=== PATIENT | female | born 1950 | race Caucasian/White ===

== ENCOUNTER → 2024-10-13 10:13 | Outpatient (REF) | payer MEDICARE, OTHER, SELFPAY | LOC: WDC 10:13 | PROVIDERS: ATTENDING PHYSICIAN Internal Medicine | DX: Z12.31 Encounter for screening mammogram for malignant neoplasm of breast (principal) | CPT/HCPCS: 77063; 77067 ==

== ENCOUNTER 2024-11-19 10:31 | Emergency (ER) | payer MEDICARE, OTHER, SELFPAY ==
[2024-11-19 10:41] VITALS: BP 150/90
--- NOTE | 2024-11-19 12:03 | ED.GENMED ---
History of Present Illness
<Ana M Crowder PA-C - Last Filed: 11/20/24 10:54>
General
Chief Complaint: Skin Problem
Source: patient
Exam Limitations: none
Time Seen by Provider: 11/19/24 11:20
Nursing documentation reviewed up to this point in time: agreed with
History of Present Illness
History of Present Illness:
Patient is a 73-year-old female with history hypertension presenting to the emergency department for evaluation of right lower leg injury following a fall 1 week ago. Patient states that she was walking out to her car last , 7 days ago when
she lost consciousness and fell. Patient reports that prior to fall she felt mildly lightheaded. She does have a history of somewhat frequent falls due to 'labile hypertension 'per her primary care.
She was eventually able to get herself up. Patient reports noticing a large hematoma to her right proximal chan for she has been applying ice w/ some decrease in size. However�bruising on her leg has become worse over the past week and she noticed
a new bruising around her right ankle. Her chiropractor was concerned that she may have a blood clot and sent her to the emergency department for evaluation. Patient does note some mild tingling sensation in her right foot. Patient unsure if she
hit her head although denies any headache, vomiting, vision changes, confusion since fall. No blood thinners.
No pain in bilateral upper extremities. No pain in left lower extremity. No fevers or chills.
At this time�patient denies any dizziness/lightheadedness. No chest pain or shortness of breath. No heart palpitations.
Past History
<Ana M Crowder PA-C - Last Filed: 11/20/24 10:54>
Past History
ED Past Medical History: HTN, Hypercholesterolemia, Psychiatric (Anxiety) and Other (Sjogren's syndrome)
ED Past Surgical History: None
Social History
Tobacco: Non-smoker
Alcohol: None
Drug: None
Personal:
Living: alone
Employment: Employed
Review of Systems
<Ana M Crowder PA-C - Last Filed: 11/20/24 10:54>
Review of Systems
Allergies reviewed?: Yes
All Other Systems: ROS reviewed and negative except as documented in HPI and ROS
Phy Exam
<Ana M Crowder PA-C - Last Filed: 11/20/24 10:54>
Physical Exam
Physical Exam:
Vitals: Hypertensive, otherwise stable vital signs. Afebrile
General: Patient is well appearing, no acute distress. Nontoxic appearing
Skin: Warm and dry, no rashes or lesions
Head: Normocephalic, atraumatic
Eyes: Sclera nonicteric. EOMs intact. No nystagmus.
Throat: Protecting airway
Neck: Normal ROM, no cervical spine tenderness, no meningismus
Cardiac: Regular rate and rhythm, no murmurs.
Pulm: Normal respiratory effort, no wheezes, rales, rhonchi heard on exam.
Abdomen: Abdomen soft and nontender. No abdominal tenderness.
Back: No midline spinal tenderness.
Extremities: Hematoma to right proximal tibia, ecchymoses to right anterior lower leg from knee to ankle. Palpable distal pulses in RLE. Bilateral lower extremities with full range of motion without pain. No evidence of traumatic injury to left
lower extremity or bilateral upper extremities
Neuro: AAOx3. CN II-XII intact. No focal neurologic deficits.
Psychiatric: Normal affect.
Course
<Ana M Crowder PA-C - Last Filed: 11/20/24 10:54>
Orders/Labs/Results
Orders:
Orders
11/19/24 10:43
US Periph Venous LOWER Ext RT Urgent
Comment:
Reason For Exam: right calf swelling with pain
11/19/24 11:58
Electrocardiogram (*1) Urgent
Reason for Study: Vertigo / Dizzy
EKG- Treatment ONCE
Tib/Fib, Right 2 View [CR Leg Tibia/fibula Right 2 Vw] Urgent
Comment:
Reason For Exam: fall, bruising right lower leg
11/19/24 12:09
Complete Blood Count/With Diff Urgent
Comprehensive Metabolic Panel Urgent
11/19/24 13:06
Orthostatic VS- Treatment ONCE
Abnormal Lab Results
11/19/24
12:09
Creatinine 0.5 L mg/dL
(0.6-1.0)
Glucose 106 H mg/dl
(70-99)
11/19/24 12:09
11/19/24 12:09
Vital Signs
Initial and Last Documented VS:
Initial Vital Signs
Temp Pulse Resp BP Pulse Ox
98.0 F 100 16 150/90 98
11/19/24 10:41 11/19/24 10:41 11/19/24 10:41 11/19/24 10:41 11/19/24 10:41
Last Documented Vital Signs
Temp Pulse Resp BP Pulse Ox
98.0 F 78 16 140/68 99
11/19/24 10:41 11/19/24 13:59 11/19/24 13:59 11/19/24 13:59 11/19/24 13:59
<Dick Anguiano MD - Last Filed: 11/19/24 13:55>
Orders/Labs/Results
Orders:
Orders
11/19/24 10:43
US Periph Venous LOWER Ext RT Urgent
Comment:
Reason For Exam: right calf swelling with pain
11/19/24 11:58
Electrocardiogram (*1) Urgent
Reason for Study: Vertigo / Dizzy
EKG- Treatment ONCE
Tib/Fib, Right 2 View [CR Leg Tibia/fibula Right 2 Vw] Urgent
Comment:
Reason For Exam: fall, bruising right lower leg
11/19/24 12:09
Complete Blood Count/With Diff Urgent
Comprehensive Metabolic Panel Urgent
11/19/24 13:06
Orthostatic VS- Treatment ONCE
Abnormal Lab Results
11/19/24
12:09
Creatinine 0.5 L mg/dL
(0.6-1.0)
Glucose 106 H mg/dl
(70-99)
11/19/24 12:09
11/19/24 12:09
Vital Signs
Initial and Last Documented VS:
Initial Vital Signs
Temp Pulse Resp BP Pulse Ox
98.0 F 100 16 150/90 98
11/19/24 10:41 11/19/24 10:41 11/19/24 10:41 11/19/24 10:41 11/19/24 10:41
Last Documented Vital Signs
Temp Pulse Resp BP Pulse Ox
98.0 F 78 16 140/68 99
11/19/24 10:41 11/19/24 13:59 11/19/24 13:59 11/19/24 13:59 11/19/24 13:59
<Ana M Crowder PA-C - Last Filed: 11/20/24 10:54>
MDM/Problems Addressed
Differential Diagnosis Includes:
Not limited to: Hematoma, lower leg fracture, DVT, orthostatic hypotension, medication side effects, etc.
MDM/Problems Addressed:
73 year old presenting with hematoma to right lower leg after what seems to have been syncopal event one week ago. No fevers or chills. No chest pain or shortness of breath. Patient hypertensive, otherwise stable vital signs. Physical exam as above.
No evidence of head or neck trauma. Hematoma noted to right proximal tibia without overlying redness or warmth to suggest infectious process. RLE neurovascularly intact. No neurologic deficits. Patient ambulating through department. RLE US negative
for DVT. No evidence of fracture of RLE. Labs were obtained along with an EKG given hx of possible syncope. EKG without arrhythmia or acute ischemic changes.
Overall impression is hematoma on right lower extremity. Low suspicion for infection. Feel patient stable for discharge w/ PCP follow-up. Will advise cardiology f/u as well given hx of syncope. Return precautions discussed.
Chronic conditions affecting care:
Hypertension
Acute Exacerbation and/or Progression of Chronic Illness:
N/A
<Ana M Crowder PA-C - Last Filed: 11/20/24 10:54>
*Radiology
Radiology exam reviewed: preliminary read by ED provider (X-ray reviewed by me-no acute fracture)
*Pulse Oximetry
Patient hypoxic: no
*EKG
Interpreted by ED Provider?: Yes
EKG Intrepretation Date: 11/19/24
Interpretation: abnormal
Comparison EKG: no changes
Heart Rate: 71
Rate: normal
Rhythm: sinus
[place]: left axis deviation
Interval: normal QT interval
QRS Pattern: left vent hypertrophy
Ischemia: no ischemia
*Incising Machine Operator Interpretation
Rate: Incising Machine Operator- N/A
*Critical Care Note
Total Time (30-74mins, 75-104mins- exclusive of procedures): Not Applicable
ED Attending Note
<Ana M Crowder PA-C - Last Filed: 11/20/24 10:54>
-
Portions of this chart may have been created with voice recognition software.� Occasional wrong word or��sound alike� substitutions may have occurred due to the inherent limitations of voice recognition software.
<Dick nAguiano MD - Last Filed: 11/19/24 13:55>
ED Attending Note
Patient seen and examined by attending physician: Yes
ED Attending Note:
I have seen and evaluated the patient with a [id number] encounter. I have spoken to the advance practicer provider and involved in the medical history, the physical exam, medical decision making.
Evaluation and management service: agree unless noted differently below.
Results interpretation: agree unless noted differently below.
Focused HPI: 73-year-old female with history as documented presents for evaluation of right leg bruise. Patient reports that when she was going grocery shopping last week she had some lightheadedness and passed out. She landed on her knees and
sustained a hematoma to her right knee. She did not hit her head. She says that she has passed out many times before and was told by her primary doctor that she has 'labile hypertension' and that her blood pressure sometimes drops. She says that
she initially had a lump on her knee but over the past week she noticed that the entire leg became bruised and today she saw her chiropractor who recommended she come to the emergency room to be evaluated for a blood clot. She denies any other
serious injuries�denies any headache, neck pain, back pain, rib pain. She denies any chest pain or shortness of breath. She is not on blood thinners.
Physical exam: Awake alert no distress. Vital signs normal on my assessment. She has no cardiac rubs gallops or murmurs. Lungs clear to auscultation bilaterally. Head is atraumatic and she has no cervical spine tenderness. No tenderness of the
thoracic or lumbar spine. No abdominal tenderness. She has a hematoma proximal anterior medial right lower leg with yellow to purple bruising down the entire anterior chan and near the ankle; she has no significant edema, good strong distal pulses
of the right leg, no tenderness along the joint line of the knee and full range of motion of the knee and she is weightbearing in the ER.
Medical Decision Makin-year-old female presents for evaluation of right leg injury; had syncopal event last week which is not uncommon for her she says. She sustained a hematoma to the knee and over the past week entire leg has become
bruised�suspect this is a gravity effect from large hematoma in the proximal lower leg. Pain has actually improved over the past week and she says she is doing well. Labs are unremarkable here. X-ray and ultrasound negative for any acute
pathology. Stable for discharge to follow-up with PCP.
Discharge Plan
Departure
Patient Disposition: Home (Routine Discharge)
Date of Disposition: 11/19/24
Time of Disposition: 13:49
Patient with high blood pressure during this ER visit?: Yes
Condition: Good
Covid-19: Not Applicable
Discharge Problem:
Hematoma of right lower leg, Fall, Syncope
Instructions: Syncope (fainting), BLOOD PRESSURE, Hematoma
Prescriptions:
No Action
olmesartan [Benicar] 5 MG tablet
5 mg PO DAILY
cyanocobalamin (vitamin B-12) 1,000 mcg Tablet
1,000 mcg PO DAILY
ascorbic acid (vitamin C) [Vitamin C] 500 mg Tablet
2 g PO DAILY
magnesium oxide 500 mg Tablet
500 mg PO DAILY
coenzyme Q10 100 mg Capsule
100 mg PO DAILY
Systane (PF) 0.4-0.3 % Dropperette
1 drp OPHTHALMIC (EYE) QID
Rx Instructions:
both eyes
cholecalciferol (vitamin D3) [Vitamin D3] 50 mcg (2,000 unit) Tablet
50 mcg PO DAILY
omega 7-grb-smv-fish oil [Fish Oil] 300-1,000 mg Capsule
1 cap PO DAILY
Referrals:
ALEXA TALLYE [Other]
Omer Car MD [Active] - Call in 1-3 days for appt (Cardiology--for syncope)
Activity Restrictions/Additional Instructions:
Thank you for visiting the Emergency Department at [facility].
1. Please schedule a follow up appointment as directed. Call first thing tomorrow morning to make an appointment.
2. If indicated, please take your medications as instructed and indicated on discharge paperwork.
3. If any of your symptoms do not improve, or persist, or become more severe within 6-12 hours, please return to the emergency department for further care.
4. Please return to the emergency department if you develop a headache, neck pain/stiffness, fever greater than 100.4F, chest pain, shortness of breath, persistent nausea, vomiting, slurred speech, difficulty walking, numbness/tingling, weakness,
signs of infection or any other symptoms that are worrisome to you.
Please call [phone] if you have any questions.
Interventions
Interventions:
*Risk Screen - Suicide Last Done: 11/19/24 10:41
*General Assessment Last Done: 11/19/24 11:45
*Neglect/Abuse Screening Last Done: 11/19/24 10:41
ED- Fall Risk Assessment Last Done: 11/19/24 14:00
*ED COVID-19 Vaccine History Last Done: 11/19/24 11:45
*Nursing Disposition Last Done: 11/19/24 14:00
ED-Skin Assessment Last Done: 11/19/24 14:00
Discharge Date and Time
Discharge Date/Time: 11/19/24 14:01
Print Language: ROMANIAN
[2024-11-19 12:15] LABS: % Basophils 0.7 % (0-2); % Eosinophils 0.8 % (0-6); % Immature Granulocytes 0.1 % (0-0.5); % Lymphocytes 26.3 % (20.5-51.1); % Monocytes 7.6 % (1.7-9.3); % Neutrophils 64.5 % (42.2-75.2); Absolute Basophils 0.1 10^3/uL (0-0.2); Absolute Eosinophils 0.1 10^3/uL (0-0.7); Absolute Lymphocytes 1.9 10^3/uL (1.2-3.4); Absolute Monocytes 0.5 10^3/uL (0.1-0.6); Absolute Neutrophils 4.5 10^3/uL (1.4-6.5); Hematocrit 38.5 % (37.0-47.0); Mean Corp Hgb Conc. 33.8 g/dL (33.0-37.0); Mean Corpuscular Hgb 29.5 pg (27.0-31.0); Mean Corpuscular Volume 87.3 fL (81.0-99.0); Mean Platelet Volume 9.4 fL (7.4-10.4); Nucleated Red Blood Cells % 0 %; Platelet Count 232 10^3/uL (130-400); Red Blood Cell Count 4.41 10^6/uL (4.20-5.40); Red Cell Dist. Width 12.8 % (11.5-14.5); White Blood Cell Count 7.1 10^3/uL (4.8-10.8)
[2024-11-19 12:17] VITALS: BP 145/60
[2024-11-19 12:58] LABS: ALT (SGPT) 22 U/L (0-35); AST (SGOT) 34 U/L (14-36); Albumin 4.6 g/dl (3.5-5.0); Alkaline Phosphatase 60 U/L (38-126); Blood Urea Nitrogen 14 mg/dl (7-17); Calcium 9.1 mg/dl (8.4-10.2); Carbon Dioxide 26 mmol/L (22-30); Chloride 102 mmol/L (98-107); Glucose 106 mg/dl (70-99); Potassium 4.1 mmol/L (3.5-5.1); Sodium 139 mmol/L (135-145); Total Bilirubin 0.6 mg/dl (0.2-1.3); Total Protein 7.4 g/dl (6.3-8.2); eGFR > 60.00
[2024-11-19 13:06] VITALS: BP 141/63; BP 142/68; BP 146/71; PULSE 84; PULSE 87; PULSE 92
[2024-11-19 13:59] VITALS: BP 140/68
== END 2024-11-19 14:01 | disposition home or self-care (01) ==
LOC: EMR 10:31
PROVIDERS: Physician Assistant; EMERGENCY PHYSICIAN Emergency Medicine
DX: S80.11XA Contusion of right lower leg, initial encounter (principal); R55 Syncope and collapse; Y93.01 Activity, walking, marching and hiking; R42 Dizziness and giddiness; I11.9 Hypertensive heart disease without heart failure; E78.00 Pure hypercholesterolemia, unspecified; F41.9 Anxiety disorder, unspecified; M35.00 Sjogren syndrome, unspecified
CPT/HCPCS: 99284; 73590; 80053; 85025; 93005; 93971

== ENCOUNTER → 2025-10-15 09:57 | Outpatient (REF) | payer MEDICARE, OTHER, SELFPAY | LOC: WDC 09:57 | PROVIDERS: ATTENDING PHYSICIAN Obstetrics & Gynecology Gynecology; FAMILY PHYSICIAN Internal Medicine | DX: Z12.31 Encounter for screening mammogram for malignant neoplasm of breast (principal); Z12.39 Encounter for other screening for malignant neoplasm of breast | CPT/HCPCS: 77063; 77067 ==